=== PATIENT | female | born 1980 | race Hispanic/Latino ===

== ENCOUNTER 2017-04-18 23:42 | Emergency (ER) | payer OTHER ==
[2017-04-19 00:18] VITALS: BP 104/69; PULSE 86; RESP 14; TEMP 97.7; O2SAT 96
--- NOTE | 2017-04-19 00:32 | C.PDOC ---
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 Pt notes that she accidentally cut her right hand with a metal piece attached to a chair, "while trying to reach the phone under the chair in move [place]". Pt sts, noted bleeding from wound. Otherwise, pt denies deformity, neurovascular deficit, fever, chills, or any other complaints. Time Seen by Provider: 04/19/17 00:10 Chief Complaint (Nursing): Abnormal Skin Integrity History Per: Patient History/Exam Limitations: no limitations Onset/Duration Of Symptoms: Hrs Current Symptoms Are (Timing): Still Present Location Of Injury: Left: Hand (Dorsal lion aspect. Laceration) Quality Of Symptoms: Painful Severity: Mild Recent travel outside of the [place]: No Additional History Per: Patient Past Medical History Reviewed: Historical Data, Nursing Documentation, Vital Signs Vital Signs: Last Vital Signs Temp 97.7 F 04/19/17 00:16 Pulse 86 04/19/17 00:16 Resp 14 04/19/17 00:16 BP 104/69 04/19/17 00:16 Pulse Ox 96 04/19/17 00:42 - Medical History PMH: No Chronic Diseases Surgical History: Appendectomy Family History: States: No Known Family Hx - Social History Hx Alcohol Use: No Hx Substance Use: No - Immunization History Hx Tetanus Toxoid Vaccination: Yes Hx Influenza Vaccination: No Hx Pneumococcal Vaccination: No Review Of Systems Except As Marked, All Systems Reviewed And Found Negative. Constitutional: Negative for: Fever, Chills Musculoskeletal: Positive for: Hand Pain (Laceration to the left hand. No discharge) Skin: Positive for: Lesions Neurological: Negative for: Weakness, Numbness Physical Exam - Physical Exam Appears: Well, Non-toxic, No Acute Distress Skin: Warm, Dry, Other (2cm laceration to the dorsal lion aspect of the left hand overlining the carpal bone. 2cm laceration to the thenar eminence area.) Head: Atraumatic, Normacephalic Eye(s): bilateral: Normal Inspection Extremity: Normal ROM (Right hand), Capillary Refill (<2secs), No Deformity, No Swelling Extremity: Bilateral: Normal Color And Temperature, Normal ROM Pulses: Left Radial: Normal, Right Radial: Normal Neurological/Psych: Oriented x3, Normal Speech, Normal Motor, Normal Sensation, Normal Reflexes ED Course And Treatment O2 Sat by Pulse Oximetry: 96 (RA) Pulse Ox Interpretation: Normal Progress Note: On re-eavluation, pt is afebrile, hemodynamicaly stable. non- toxic. Right hand: lacerations#2 reapired with sutures ( see full report). FAROM, no neurovascular deficits. As per pt,tetanus is UTD. Pt advised on wound care. ref. to f/u with PMD in 2 days for wound check. return if any worsening or new changes/sign of infection. Pt understand and stable for discharge now, Laceration - Laceration Repair Right hand thenar eminence Wound Length (In cm): 2cm Description Of Wound: Linear (cutaneous) Wound Cleansed With: Betadine, Sterile Saline Anesthesia: Lidocaine 2% Wound Examination: Irrigated With Saline, No FB With Wound Exploration, No Tendon Injury With Wound Exploration Wound Closure: Suture (#4) Suture Technique And Material Used: Interrupted Wound Complexity: Simple Right hand dorsal aspect Wound Length (In cm): 2 Description Of Wound: Linear Wound Cleansed With: Betadine, Sterile Saline Anesthesia: Lidocaine 2% Wound Examination: Irrigated With Saline, No FB With Wound Exploration, No Tendon Injury With Wound Exploration Wound Closure: Suture (#4) Suture Technique And Material Used: Interrupted Wound Complexity: Simple Disposition Counseled Patient/Family Regarding: Diagnosis, Need For Followup, Rx Given - Disposition Referrals: [facility] at [facility] [Outside] Disposition: HOME/ ROUTINE Disposition Time: 00:52 Condition: STABLE Additional Instructions: Light duty to injured hand Avoid water exposure for 24-48 hours Apply antibiotic cream topical to wound daily Suture removal in 7-10 days Follow up with PMD in 2 days for wound check. return to ED at any time if any sign of infection or any other new changes. Instructions: Laceration (ED), Care For Your Stitches (ED) - Clinical Impression Clinical Impression: Laceration of hand - Scribe Statement The provider has reviewed the documentation as recorded by the Avisibbobby morrow All medical record entries made by the Scribe were at my direction and personally dictated by me. I have reviewed the chart and agree that the record accurately reflects my personal performance of the history, physical exam, medical decision making, and the department course for this patient. I have also personally directed, reviewed, and agree with the discharge instructions and disposition.
[2017-04-19] MEDS ORDERED: Bacitracin 500 Units/gm Oint Foilpak UD ONE (00:48)
== END 2017-04-19 01:00 | disposition home or self-care (01) ==
LOC: C.ER 23:42
DX: S61.411A Laceration without foreign body of right hand, initial encounter (principal); W45.8XXA Other foreign body or object entering through skin, initial encounter; Y93.89 Activity, other specified; Y92.254 Theater (live) as the place of occurrence of the external cause

== ENCOUNTER 2017-04-19 13:50 | Emergency (ER) | payer OTHER ==
[2017-04-19] MEDS ORDERED: Bacitracin 500 Units/gm Oint Foilpak UD TOP ONE (15:03)
--- NOTE | 2017-04-19 15:17 | C.PDOC ---
History Of Present Illness 36 y/o female presents to the ED with complaint of decreased sensation near right medial thumb. Pt was seen yesterday with laceration repair right dorsum of hand and now has numbness. Pt denies fever, chills or any other complaints. Time Seen by Provider: 04/19/17 14:14 Chief Complaint (Nursing): Upper Extremity Problem/Injury History Per: Patient History/Exam Limitations: no limitations Onset/Duration Of Symptoms: Hrs Current Symptoms Are (Timing): Still Present Severity: Mild Recent travel outside of the [place]: No Past Medical History Reviewed: Historical Data, Nursing Documentation, Vital Signs Vital Signs: Last Vital Signs Temp 98.2 F 04/19/17 14:02 Pulse 65 04/19/17 14:02 Resp 20 04/19/17 14:02 BP 125/86 04/19/17 14:02 Pulse Ox 98 04/19/17 15:20 Surgical History: Appendectomy Family History: States: Unknown Family Hx - Social History Hx Alcohol Use: No Hx Substance Use: No - Immunization History Hx Tetanus Toxoid Vaccination: Yes Hx Influenza Vaccination: No Hx Pneumococcal Vaccination: No Review Of Systems Constitutional: Negative for: Fever, Chills Neurological: Positive for: Numbness (right medial thumb) Physical Exam - Physical Exam Appears: Non-toxic, No Acute Distress Skin: Warm, Dry, No Rash, Other (well healing lacerations to dorsum right wrist and dorsal radial aspect right wrist; decreased sensation to corner right thumb) Head: Atraumatic, Normacephalic Extremity: Normal ROM, Capillary Refill (<2 seconds), No Deformity Pulses: Right Radial: Normal Neurological/Psych: Oriented x3, Normal Speech, Normal Motor, No Normal Sensation ED Course And Treatment O2 Sat by Pulse Oximetry: 98 (room air) Pulse Ox Interpretation: Normal Medical Decision Making Medical Decision Making: wounds healing well. pt reports slight tingling to distal thumb, from, normal cap refill, non tender. bacitracin and bandage applied. Disposition Counseled Patient/Family Regarding: Diagnosis, Need For Followup - Disposition Disposition: HOME/ ROUTINE Disposition Time: 15:55 Condition: STABLE Additional Instructions: Keep clean and dry. Cahnge bandage once a day, wash with soap and water, then re -apply antibiotic ointment. Suture removal in one week. 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 - Scribe Statement The provider has reviewed the documentation as recorded by the Scribe Juan A Mercado All medical record entries made by the Scribe were at my direction and personally dictated by me. I have reviewed the chart and agree that the record accurately reflects my personal performance of the history, physical exam, medical decision making, and the department course for this patient. I have also personally directed, reviewed, and agree with the discharge instructions and disposition.
[2017-04-19] MEDS ORDERED: Bacitracin 500 Units/gm Oint Foilpak UD ONE (15:34)
[2017-04-19 16:08] VITALS: BP 111/60; PULSE 68; RESP 16; TEMP 98.4
[2017-04-21 12:39] VITALS: O2SAT 98
== END 2017-04-19 16:07 | disposition home or self-care (01) ==
LOC: C.ER 13:50
DX: Z48.00 Encounter for change or removal of nonsurgical wound dressing (principal); R20.0 Anesthesia of skin

== ENCOUNTER 2017-05-01 11:44 | Emergency (ER) | payer OTHER ==
[2017-05-01 11:49] VITALS: BP 118/76; TEMP 98.7; O2SAT 97
--- NOTE | 2017-05-01 12:02 | C.PDOC ---
History Of Present Illness 36 yr old female presents to the ER for suture removal from the right wrist. Patient reports the sutures were placed on April 18. Denies fever, rash, weakness or numbness. Time Seen by Provider: 05/01/17 11:53 Chief Complaint (Nursing): Wound Check Past Medical History Vital Signs: Last Vital Signs Temp 98.7 F 05/01/17 11:47 Pulse 85 05/01/17 11:47 Resp 19 05/01/17 11:47 BP 118/76 05/01/17 11:47 Pulse Ox 97 05/01/17 12:02 Surgical History: Appendectomy Family History: States: Unknown Family Hx - Social History Hx Alcohol Use: No Hx Substance Use: No - Immunization History Hx Tetanus Toxoid Vaccination: Yes Hx Influenza Vaccination: No Hx Pneumococcal Vaccination: No Review Of Systems Except As Marked, All Systems Reviewed And Found Negative. Constitutional: Negative for: Fever Musculoskeletal: Positive for: Other (Right Wrist - Sutures in place) Skin: Negative for: Rash Neurological: Negative for: Weakness, Numbness Physical Exam - Physical Exam Appears: Well, Non-toxic, No Acute Distress Skin: Warm, Dry, Other (Right Wrist, Thenar [place] & Dorsal Aspect - 4 sutures intact. No erythema. No Swelling. No dischagre. ) Head: Atraumatic, Normacephalic Extremity: Normal ROM, No Tenderness, Capillary Refill (<2), No Deformity, No Swelling Pulses: Left Radial: Normal, Right Radial: Normal Neurological/Psych: Oriented x3, Normal Speech, Normal Motor ED Course And Treatment O2 Sat by Pulse Oximetry: 97 Disposition Counseled Patient/Family Regarding: Diagnosis, Need For Followup - Disposition Referrals: [facility] at [facility] [Outside] Disposition: HOME/ ROUTINE Disposition Time: 12:05 Condition: STABLE Additional Instructions: FOLLOW UP WITH YOUR DOCTOR/CLINIC IN 1-2 DAYS RETURN TO ER IF YOU HAVE ANY CONCERNING SYMPTOMS, SUCH REDNESS, DISCHARGE, FEVER, SWELLING Instructions: Stitches Removal (ED) Forms: General Discharge Instructions Print Language: LIBERIAN - POA Present On Arrival: None - Clinical Impression Clinical Impression: Visit for suture removal - Scribe Statement The provider has reviewed the documentation as recorded by the Scribe Simona Heaton Provider Attestation: All medical record entries made by the Scribe were at my direction and personally dictated by me. I have reviewed the chart and agree that the record accurately reflects my personal performance of the history, physical exam, medical decision making, and the department course for this patient. I have also personally directed, reviewed, and agree with the discharge instructions and disposition.
[2017-05-01 12:26] VITALS: PULSE 84; RESP 18
== END 2017-05-01 12:22 | disposition home or self-care (01) ==
LOC: C.ER 11:44
DX: Z48.02 Encounter for removal of sutures (principal)

== ENCOUNTER 2017-05-28 20:38 | Emergency (ER) | payer OTHER ==
[2017-05-28 20:55] VITALS: BMI 18.8
[2017-05-28] MEDS ORDERED: Sucralfate 1 gm/10 ml Oral Susp UD PO STA (21:30)
[2017-05-28] MEDS ORDERED: Sodium Chloride 0.9% 1,000 ML IV ONE (21:30)
[2017-05-28] MEDS ORDERED: Sodium Chloride 0.9% 1,000 ML ONE (21:52)
[2017-05-28] MEDS ORDERED: Iohexol 240 (50 ml) ONE (21:53)
--- NOTE | 2017-05-28 21:56 | C.PDOC ---
History Of Present Illness A 36 y/o F c/o abdominal discomfort and bloating for 2 days. Denies pain, fever , chills, nausea, diarrhea, vomiting, vaginal bleeding, or discharge. Pt reports (+) BRBPR today. Time Seen by Provider: 05/28/17 21:34 Chief Complaint (Nursing): GI Problem History Per: Patient History/Exam Limitations: no limitations Onset/Duration Of Symptoms: Days Current Symptoms Are (Timing): Still Present Severity: Mild Location Of Pain/Discomfort: Epigastric Radiation Of Pain To:: None Associated Symptoms: Other (Bloating, (+) BRBPR) Exacerbating Factors: None Alleviating Factors: None Recent travel outside of the [place]: No Additional History Per: Patient Abnormal Vaginal Bleeding: No Past Medical History Reviewed: Historical Data, Nursing Documentation, Vital Signs Vital Signs: Last Vital Signs Temp 97.8 F 05/28/17 20:55 Pulse 89 05/28/17 20:55 Resp 18 05/28/17 20:55 BP 129/88 05/28/17 20:55 Pulse Ox 98 05/29/17 01:55 Surgical History: Appendectomy Family History: States: Unknown Family Hx - Social History Hx Alcohol Use: No Hx Substance Use: No - Immunization History Hx Tetanus Toxoid Vaccination: Yes Hx Influenza Vaccination: No Hx Pneumococcal Vaccination: No Review Of Systems Except As Marked, All Systems Reviewed And Found Negative. Constitutional: Positive for: Other (Bloating). Negative for: Fever, Chills Gastrointestinal: Positive for: Abdominal Pain (Discomfort. No pain.). Negative for: Nausea, Vomiting, Diarrhea Genitourinary: Negative for: Vaginal Discharge, Vaginal Bleeding Physical Exam - Physical Exam Appears: Non-toxic, No Acute Distress Skin: Warm, Dry Head: Atraumatic, Normacephalic Eye(s): bilateral: Normal Inspection Oral Mucosa: Moist Cardiovascular: Rhythm Regular Respiratory: Normal Breath Sounds, No Accessory Muscle Use, No Rales, No Rhonchi , No Wheezing Gastrointestinal/Abdominal: Soft, Tenderness (Epigastric tenderness), No Guarding, No Rebound Rectal: Normal Exam, Other (Brown stools) Back: Normal Inspection, No CVA Tenderness Neurological/Psych: Oriented x3, Normal Speech, Normal Cognition, Other (No focal deficit) ED Course And Treatment - Laboratory Results Result Diagrams: 05/28/17 21:51 05/28/17 21:51 O2 Sat by Pulse Oximetry: 98 (RA) Pulse Ox Interpretation: Normal - CT Scan/US CT Abd with contrast Other Rad Studies (CT/US): Interpreted By Me, Read By Radiologist CT/US Interpretation: EXAM: CT Abdomen and Pelvis With Intravenous Contrast. CLINICAL HISTORY: 36 years old, female; Pain; Abdominal pain and other: Upperabd tenderness/ gi bleed. TECHNIQUE: Axial computed tomography images of the abdomen and pelvis with intravenous contrast. This CT. exam was performed using one or more of the following dose reduction techniques: automated. exposure control, adjustment of the mA and/or kV according to patient size, and/ or use of iterative. reconstruction technique. Coronal and sagittal reformatted images were created and reviewed. COMPARISON: No relevant prior studies available. FINDINGS: Lower thorax: No acute findings. ABDOMEN: Liver : Unremarkable. No mass. Gallbladder and bile ducts: Unremarkable. No calcified stones. No ductal dilation. No significant. wall thickening. Pancreas: Unremarkable. No mass. No ductal dilation. Spleen: Unremarkable. No splenomegaly. Adrenals: Unremarkable. No mass. Kidneys and ureters: Right kidney with ectopic orientation, kidneys otherwise unremarkable. No. solid mass. No hydronephrosis. Stomach and bowel: Bowel loops appear within normal limits, no signs of wall thickening, mucosal. edema, or bowel distention. Appendix: The appendix is not definitively visualized. However, no secondary signs of appendicitis. are present. PELVIS: Bladder: Unremarkable. No mass. Reproductive: A large heterogeneous mass of the left adnexa measuring approximately 4.9 cm preMultiple. uterine fibroids are present predominantly intramural without significant distortion of the. endometrium. ABDOMEN and PELVIS: Intraperitoneal space: Unremarkable. No free air. No significant fluid collection. Bones/joints: No acute fracture. No dislocation. Soft tissues: Unremarkable. Vasculature: Unremarkable. No abdominal aortic aneurysm. Lymph nodes: Unremarkable. No enlarged lymph nodes. IMPRESSION: There is solid mass left adnexa. Ovaries are not delineated. Presence of a left ovarian torsion or. solid mass cannot be excluded. Consider sonographic correlation with Doppler assessment. Multiple uterine fibroids as described. Nonvisualization of the appendix. No acute process in the abdomen. Medical Decision Making Medical Decision Making: Impression: A 36 y/o F c/o abdominal discomfort and bloating for 2 days. Plans: -Blood labs, -CT Abd, -blood labs, -Pepcid, -IV fluids, -Carafate, -IV fluids, -Reassess Disposition Counseled Patient/Family Regarding: Diagnosis - Disposition Referrals: [facility] at [facility] [Outside] Disposition: HOME/ ROUTINE Disposition Time: 04:37 Condition: STABLE Prescriptions: Ibuprofen [Motrin] 1 tab PO TID PRN #30 tab PRN Reason: Pain Instructions: Ovarian Cyst (ED), Uterine Fibroids (ED), Abdominal Pain (ED) - POA Present On Arrival: None - Clinical Impression Clinical Impression: Abdominal pain, Uterine fibroid, Ovarian cyst - Scribe Statement The provider has reviewed the documentation as recorded by the Scribe Merissa morrow All medical record entries made by the Scribe were at my direction and personally dictated by me. I have reviewed the chart and agree that the record accurately reflects my personal performance of the history, physical exam, medical decision making, and the department course for this patient. I have also personally directed, reviewed, and agree with the discharge instructions and disposition.
[2017-05-28 21:57] LABS: BASO % 0.4 % (0.0-2.0); EOS % 0.3 % (0.0-4.0); HEMOGLOBIN 13.1 g/dL (11.0-16.0); LYMPH # 1.6 K/uL (1.0-4.3); LYMPH % 28.7 % (20.0-40.0); MEAN CELL VOLUME 88.8 fL (81.0-99.0); MEAN CORPUSCULAR HEMOGLOBIN 29.3 pg (27.0-31.0); MEAN CORPUSCULAR HGB CONC 32.9 g/dL (33.0-37.0); MEAN PLATELET VOLUME 9.1 fL (7.2-11.7); MONO # 0.5 K/uL (0.0-0.8); NEUT # 3.5 K/uL (1.8-7.0); NEUT % 61.6 % (50.0-75.0); RBC 4.47 Mil/uL (3.80-5.20); RED CELL DISTRIBUTION WIDTH 14.3 % (11.5-14.5); WHITE BLOOD COUNT 5.7 K/uL (4.8-10.8)
[2017-05-28 22:03] LABS: SQUAMOUS EPITHIAL 3 /hpf (0-5); URINE BACTERIA RARE (<OCC); URINE BILIRUBIN NEGATIVE (NEGATIVE); URINE BLOOD 1+ (NEGATIVE); URINE CLARITY Clear (Clear); URINE COLOR Yellow (YELLOW); URINE GLUCOSE (UA) NORMAL (Normal); URINE LEUKOCYTE ESTERASE NEG Leu/uL (Negative); URINE NITRATE NEGATIVE (NEGATIVE); URINE PROTEIN NEGATIVE (NEGATIVE); URINE UROBILINOGEN NORMAL mg/dL (0.2-1.0)
[2017-05-28 22:04] LABS: ALBUMIN 4.1 g/dL (3.5-5.0); HCG,QUALITATIVE URINE NEGATIVE (NEGATIVE)
[2017-05-28 22:06] LABS: GFR AFRICAN-AMERICAN > 60; GFR NON-AFRICAN AMERICAN > 60
[2017-05-28 22:07] LABS: ALB/GLOB RATIO 1.2 (1.0-2.1); ALT/SGPT 20 U/L (9-52); AST/SGOT 29 U/L (14-36); BLOOD UREA NITROGEN 5 mg/dL (7-17); CALCIUM 9.3 mg/dl (8.6-10.4); LIPASE 80 U/L (23-300); PROTHROMBIN TIME 11.1 SECONDS (9.7-12.2)
[2017-05-28] MEDS ORDERED: Iodixanol 320 MG/ML 100 ML BOTTLE IV ONE (22:38)
[2017-05-29] MEDS ORDERED: Sodium Chloride 0.9% 500 ML IV ONE (00:02)
[2017-05-29 05:03] VITALS: BP 131/85; PULSE 67; RESP 16; TEMP 98.5; O2SAT 97
--- NOTE | 2017-05-29 09:11 | CT ---
PROCEDURE: CT Abdomen and Pelvis with contrast HISTORY: Upper abdominal tenderness. Upper GI bleed. COMPARISON: None. TECHNIQUE: Multiple contiguous axial images were performed through the abdomen and pelvis with intravenous contrast. Subsequently, sagittal and coronal reformatted images were obtained. Radiation dose: Total exam DLP = 251 mGy-cm. This CT exam was performed using one or more of the following dose reduction techniques: Automated exposure control, adjustment of the mA and/or kV according to patient size, and/or use of iterative reconstruction technique. FINDINGS: LOWER THORAX: 4 millimeter focal area of nodular consolidation seen within the posterior aspect of the right middle lobe. LIVER: Unremarkable. No gross lesion or ductal dilatation. GALLBLADDER AND BILE DUCTS: Unremarkable. PANCREAS: Unremarkable. No gross lesion or ductal dilatation. SPLEEN: Unremarkable. ADRENALS: Unremarkable. No mass. KIDNEYS AND URETERS: Ectopic orientation of the right kidney. VASCULATURE: Unremarkable. No aortic aneurysm. BOWEL: Unremarkable. No obstruction. No gross mural thickening. APPENDIX: Appendix not definitively visualized. PERITONEUM: Unremarkable. No free fluid. No free air. LYMPH NODES: Unremarkable. No enlarged lymph nodes. BLADDER: Unremarkable. REPRODUCTIVE: Large heterogeneous mass of the left adnexum measuring approximately 6.0 centimeters. Multiple uterine fibroid lesions are present predominantly intramural without significant distortion of the endometrium. BONES: No acute fracture. OTHER FINDINGS: None. IMPRESSION: Large lobulated ovoid focus measuring 6.0 x 4.4 centimeter seen within the region of the left adnexa demonstrating a Hounsfield unit attenuation of 60, indeterminate. Ovaries are not well delineated. Presence of a left ovarian torsion or solid mass cannot be excluded. Additional etiologies not excluded. Consider sonographic correlation with Doppler assessment. Multiple uterine fibroid lesions are noted. Nonvisualization of the appendix. These findings were preliminarily reported at 12:19 a.m. on 05/29/[address] Patrick Baer from [facility].
--- NOTE | 2017-05-29 17:35 | US ---
Pelvic ultrasound History: Left adnexal mass. Comparison: CT scan dated 05/28/2017 Technique: Real-time sonography was performed through the pelvis utilizing transvaginal technique. Findings: Uterus: 8.3 x 5.2 x 5.5 centimeters. Anteverted. Heterogeneous echotexture. Multiple prominent fibroid lesions seen posteriorly measuring 2.0 x 1.5 x 2.2 centimeters, at the fundal aspect measuring 2.7 x 1.9 x 2.6 centimeters, and at the fundal aspect measuring 2.2 x 2.0 x 2.6 centimeters. Endometrium measures 7.4 millimeters, heterogeneous. Right ovary: 3.9 x 3.0 x 3.9 centimeters. Normal flow. Left ovary: 6.5 x 4.0 x 5.7 centimeters. Normal flow. Complex heterogeneous cystic mass measuring 5.7 x 3.9 x 4.7 centimeters. Impression: As seen on the CT scan, there is a complex cystic mass at the level of the left ovary measuring 5.7 x 3.2 x 4.7 centimeters. This is of uncertain clinical etiology and may represent a hemorrhagic cyst; however, additional etiologies including endometrioma versus ovarian neoplasm versus additional etiology. Continued interval followup ultrasound and or correlation with pelvic MRI may be helpful if clinically indicated. Multiple uterine fibroid lesions. Continued interval follow-up as clinically indicated. These findings were preliminarily reported at 4:18 a.m. on 05/29/[address] Carlotta Astudillo from [facility].
== END 2017-05-29 05:03 | disposition home or self-care (01) ==
LOC: C.ER 20:38
DX: D25.9 Leiomyoma of uterus, unspecified (principal); N83.202 Unspecified ovarian cyst, left side
CPT/HCPCS: 74177; 76830; 80053; 81001; 83690; 84703; 85025; 85610; 85730; 86850; 86900; 96374; 99284; G0328; J7040; Q9967

== ENCOUNTER 2017-12-04 19:04 | Emergency (ER) | payer OTHER ==
[2017-12-04 19:05] VITALS: BMI 18.8
[2017-12-04 19:45] VITALS: BP 137/89; PULSE 76; RESP 20; TEMP 98.4; O2SAT 100
--- NOTE | 2017-12-04 21:25 | C.PDOC ---
History Of Present Illness 37 years old female presents to ED with complaints of upper back pain above right scapula. Pt describes pain as an "itchy and pinching feeling." Pt also states she feels that her right arm is swollen. Denies any other physical complaints. Time Seen by Provider: 12/04/17 20:02 Chief Complaint (Nursing): Back Pain History Per: Patient History/Exam Limitations: no limitations Onset/Duration Of Symptoms: Hrs Current Symptoms Are (Timing): Still Present Quality Of Discomfort: Other (Itchy and pinching) Previous Symptoms: None Associated Symptoms: None Exacerbating Factor(s): Nothing Recent travel outside of the [place]: No Past Medical History Reviewed: Historical Data, Nursing Documentation, Vital Signs Vital Signs: Last Vital Signs Temp 98.4 F 12/04/17 19:39 Pulse 76 12/04/17 19:39 Resp 20 12/04/17 19:39 BP 137/89 12/04/17 19:39 Pulse Ox 100 12/05/17 03:46 - Medical History PMH: No Chronic Diseases Surgical History: Appendectomy Family History: States: Unknown Family Hx - Social History Hx Alcohol Use: No Hx Substance Use: No - Immunization History Hx Tetanus Toxoid Vaccination: Yes Hx Influenza Vaccination: No Hx Pneumococcal Vaccination: No Review Of Systems Constitutional: Negative for: Fever Musculoskeletal: Positive for: Back Pain (upper back pain above right scapula), Other (Swelling in right arm). Negative for: Neck Pain Skin: Negative for: Rash Neurological: Negative for: Weakness, Numbness Physical Exam - Physical Exam Appears: Well, Non-toxic, Other (Awake and alert) Skin: Normal Color, Warm, Dry Head: Atraumatic, Normacephalic Eye(s): bilateral: Normal Inspection Oral Mucosa: Moist Neck: Supple Chest: Symmetrical, No Tenderness Cardiovascular: Rhythm Regular Extremity: Normal ROM (Moves hands normally ), Tenderness (Local right upper back above scapular area; no arm tenderness), No Swelling (Arm or upper back), Other (No erythema or lesions to right upper back ot arm) Extremity: Bilateral: Normal Color And Temperature, Normal ROM Pulses: Left Radial: Normal, Right Radial: Normal Neurological/Psych: Oriented x3, Normal Speech, Normal Cognition ED Course And Treatment O2 Sat by Pulse Oximetry: 100 (RA) Pulse Ox Interpretation: Normal Progress Note: Ordered x-ray of shoulder, upper back and dorsal spine. No acute findings. Patient is stable for discharge. Patient referred to neurologist. Disposition - Disposition Referrals: Rafa García DO [Staff Provider] - Ellis Lima MD [Staff Provider] - Disposition: HOME/ ROUTINE Disposition Time: 21:22 Condition: STABLE Additional Instructions: Follow up with PMD and Neurologist within 1-2 days. Return to ED if feel worse. 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 - Scribe Statement The provider has reviewed the documentation as recorded by the Avisibbobby Root All medical record entries made by the Scribe were at my direction and personally dictated by me. I have reviewed the chart and agree that the record accurately reflects my personal performance of the history, physical exam, medical decision making, and the department course for this patient. I have also personally directed, reviewed, and agree with the discharge instructions and disposition.
--- NOTE | 2017-12-05 08:30 | RAD ---
PROCEDURE: Radiographs of the Right Shoulder HISTORY: pain, pregnacy neg COMPARISON: No prior. FINDINGS: BONES: Normal. No fracture. JOINTS: Normal. Glenohumeral and acromioclavicular joints preserved. No osteoarthritis. SOFT TISSUES: Normal. OTHER FINDINGS: None. IMPRESSION: Normal radiographs of the right shoulder.
--- NOTE | 2017-12-05 08:31 | RAD ---
HISTORY: pain, Preg neg COMPARISON: No prior. FINDINGS: BONES: Mild scoliosis. No fracture. DISC SPACES: Normal. SOFT TISSUES: Normal. OTHER FINDINGS: None. IMPRESSION: Mild scoliosis, otherwise unremarkable study.
== END 2017-12-04 21:31 | disposition home or self-care (01) ==
LOC: C.ER 19:04
DX: M54.6 Pain in thoracic spine (principal); M54.10 Radiculopathy, site unspecified

== ENCOUNTER → 2017-12-30 20:39 | Emergency (ER) | payer OTHER ==
[2017-12-30 20:39] VITALS: BMI 18.8
== END | disposition left against medical advice (07) ==
LOC: C.ER 20:39
DX: Z02.89 Encounter for other administrative examinations (principal); R10.30 Lower abdominal pain, unspecified

== ENCOUNTER 2018-08-05 01:04 | Emergency (ER) | payer OTHER ==
[2018-08-05 01:05] VITALS: BMI 18.8
[2018-08-05 01:18] VITALS: BP 154/94; PULSE 97; RESP 20; TEMP 98.2; O2SAT 100
--- NOTE | 2018-08-05 01:42 | C.PDOC ---
History Of Present Illness 37 y/o female presents to the ED complaining of swelling to the right side of her vaginal since she woke up earlier today. She denies experiencing any trauma , any drainage, discharge, abdominal pain, dysuria or vaginal bleeding. The patient offers no other medical complaints at this time. Time Seen by Provider: 08/05/18 01:18 Chief Complaint (Nursing): Female Genitourinary History Per: Patient History/Exam Limitations: no limitations Onset/Duration Of Symptoms: Days Current Symptoms Are (Timing): Still Present Associated Symptoms: denies: Urinary Symptoms Recent travel outside of the [place]: No Past Medical History Reviewed: Historical Data, Nursing Documentation, Vital Signs Vital Signs: Last Vital Signs Temp 98.2 F 08/05/18 01:08 Pulse 97 H 08/05/18 01:08 Resp 20 08/05/18 01:08 BP 154/94 H 08/05/18 01:08 Pulse Ox 100 08/05/18 01:49 - Medical History PMH: No Chronic Diseases Surgical History: Appendectomy Family History: States: Unknown Family Hx - Social History Hx Alcohol Use: No Hx Substance Use: No - Immunization History Hx Tetanus Toxoid Vaccination: Yes Hx Influenza Vaccination: No Hx Pneumococcal Vaccination: No Review Of Systems Except As Marked, All Systems Reviewed And Found Negative. Constitutional: Negative for: Fever Genitourinary: Negative for: Dysuria, Vaginal Discharge, Vaginal Bleeding Skin: Positive for: Other (swelling to right side of vagina) Physical Exam - Physical Exam Appears: Well, Non-toxic, No Acute Distress Skin: Normal Color, Warm, Dry Head: Atraumatic, Normacephalic Eye(s): bilateral: Normal Inspection Ear(s): Bilateral: Normal Oral Mucosa: Moist Pelvic: No Vaginal Bleeding, No Vaginal Discharge, Other (engorged right labia. No fluctuant mass, no tenderness, no drainage) Extremity: Normal ROM Extremity: Bilateral: Atraumatic, Normal Color And Temperature, Normal ROM Neurological/Psych: Oriented x3, Normal Speech ED Course And Treatment O2 Sat by Pulse Oximetry: 100 (RA) Pulse Ox Interpretation: Normal Progress Note: Ordered a test-- negative. Patient is stable for discharge. Disposition Counseled Patient/Family Regarding: Diagnosis, Need For Followup - Disposition Referrals: Rafa García DO [Staff Provider] - Disposition: HOME/ ROUTINE Disposition Time: 01:39 Condition: STABLE Additional Instructions: Avoid tight fitting clothing Follow up with PMD/ or [employer] doctor Return to ER if draining , pain, increase swellling, or worse Forms: [facility] (Green[place]ic), General Discharge Instructions - Clinical Impression Clinical Impression: Swelling of labia - PA / NEWSPAPER REPORTER / Resident Statement MD/DO has reviewed & agrees with the documentation as recorded. - Scribe Statement The provider has reviewed the documentation as recorded by the Scribe (Ida Farrar) All medical record entries made by the Scribe were at my direction and personally dictated by me. I have reviewed the chart and agree that the record accurately reflects my personal performance of the history, physical exam, medical decision making, and the department course for this patient. I have also personally directed, reviewed, and agree with the discharge instructions and disposition.
== END 2018-08-05 02:07 | disposition home or self-care (01) ==
LOC: C.ER 01:04
DX: N89.8 Other specified noninflammatory disorders of vagina (principal)

== ENCOUNTER 2018-12-18 19:51 | Emergency (ER) | payer OTHER ==
[2018-12-18 19:52] VITALS: BMI 18.8
[2018-12-18 20:11] VITALS: RESP 18
--- NOTE | 2018-12-18 20:39 | C.PDOC ---
History Of Present Illness 38 y/o female with a PMHx of gastritis, alcohol use, presents to the ED with complaints of epigastric pain for the past week. Notes she has been drinking slightly more than normal, 4 beers per day, and developed abdominal pain. Repor ts pain feels similar to previous episodes of gastritis. Otherwise she denies nausea, vomiting, constipation, diarrhea, dark or bloody stools. No urinary complaints. She denies any vaginal bleeding or discharge. Notes that her menstrual period just finished. Patient states she is mostly concerned regarding bloating and increased burping. 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 Negative for: Na usea, Vomiting, Diarrhea, Constipation, Melena, Hematochezia Genitourinary: Negative for: Dysuria, Frequency, Vaginal Discharge, Vaginal Bleeding Neurological: Negative for: Weakness, Dizziness Physical Exam - Physical Exam Appears: Non-toxic, No Acute Distress Skin: Warm, Dry Head: Normacephalic Eye(s): bilateral: Normal Inspection, PERRL, EOMI Oral Mucosa: Moist Neck: Trachea Midline, Supple, Other (No meningeal signs- negative kernig's and brudzinskis) Chest: Symmetrical, No Tenderness Cardiovascular: Rhythm Regular, No Friction Rub Respiratory: No Rales, No Rhonchi, No Wheezing Gastrointestinal/Abdominal: Soft, No Tenderness, No Organomegaly, No Mass, No Distention, No Guarding, No Rebound, No Hernia Back: Normal Inspection, No CVA Tenderness, No Vertebral Tenderness Extremity: Bilateral: Normal Color And Temperature Pulses: Left Dorsalis Pedis: Normal, Right Dorsalis Pedis: Normal Neurological/Psych: Oriented x3 Gait: Steady ED Course And Treatment - Laboratory Results Result Diagrams: 12/18/18 21:24 12/18/18 21:24 O2 Sat by Pulse Oximetry: 97 (RA) Pulse Ox Interpretation: Normal Medical Decision Making Medical Decision Makin yr old female w/ hx of etoh abuse p/w epigastric abdominal pain, bloating. Likely alcoholic gastritis vs GERD. RUQ non-ttp. Pt has had appendectomy prior. No peritoneal signs. No fever, chills or night sweats. Plan: Labs ordered and reviewed. Patient treated with IV fluids, 20 mg IV Pepcid, 80 mg PO Mylicon, and 30 ml PO Maalox. Repeat exam is unremarkable, abdomen soft and nontender. Patient is tolerating PO clears. Pt denies any abd pain currently. Plan is to d/c home. Patient advised to decrease alcohol use and given return indications and followup Disposition - Disposition Referrals: Boris Curry MD [Staff Provider] - Rafa García DO [Staff Provider] - Disposition: HOME/ ROUTINE Disposition Time: 23:16 Condition: GOOD Additional Instructions: DECREASE THE AMOUNT OF ALCOHOL YOU DRINK. IT CAN CAUSE STOMACH ISSUES. SEE THE D OCTORS PROVIDED. ALSO RETURN IF ANY NEW ISSUES. Prescriptions: Famotidine [Pepcid] 20 mg PO DAILY PRN 10 Days #10 tab PRN Reason: Pain, Moderate (4-7) Instructions: Alcohol Use - When Is Drinking a Problem?, Gastritis (DC) Forms: [facility] (Lux[place]ish) - Clinical Impression Clinical Impression: Gastritis, Alcoholic gastritis - Scribe Statement The provider has reviewed the documentation as recorded by the Atilio Lugo Provider Attestation: All medical record entries made by the Scribe were at my direction and personally dictated by me. I have reviewed the chart and agree that the record accurately reflects my personal performance of the history, physical exam, medical decision making, and the department course for this patient. I have also personally directed, reviewed, and agree with the discharge instructions and disposition.
[2018-12-18] MEDS ORDERED: Sodium Chloride 0.9% 1,000 ML IV ONE (21:32)
[2018-12-18] MEDS ORDERED: Aluminum Hydroxide/Magnesium Hydroxide Susp (30 mL) PO STA (21:32)
[2018-12-18] MEDS ORDERED: Simethicone 80 mg Chewtab PO STA ×2 (21:32→22:07)
[2018-12-18 21:35] LABS: BASO % 0.7 % (0.0-2.0); EOS # 0.1 K/uL (0.0-0.7); EOS % 1.5 % (0.0-4.0); HEMOGLOBIN 13.1 g/dL (11.0-16.0); LYMPH # 2.5 K/uL (1.0-4.3); LYMPH % 44.5 % (20.0-40.0); MEAN CELL VOLUME 89.6 fL (81.0-99.0); MEAN CORPUSCULAR HEMOGLOBIN 29.4 pg (27.0-31.0); MEAN CORPUSCULAR HGB CONC 32.8 g/dL (33.0-37.0); MEAN PLATELET VOLUME 8.6 fL (7.2-11.7); MONO # 0.5 K/uL (0.0-0.8); MONO % 8.8 % (0.0-10.0); NEUT # 2.5 K/uL (1.8-7.0); NEUT % 44.5 % (50.0-75.0); NRBC % 0.1 % (0.0-2.0); RBC 4.46 Mil/uL (3.80-5.20); RED CELL DISTRIBUTION WIDTH 13.5 % (11.5-14.5); WHITE BLOOD COUNT 5.7 K/uL (4.8-10.8)
[2018-12-18 21:42] LABS: SQUAMOUS EPITHIAL 5 /hpf (0-5); URINE BILIRUBIN NEGATIVE (NEGATIVE); URINE BLOOD NEGATIVE (NEGATIVE); URINE CLARITY Clear (Clear); URINE COLOR Yellow (YELLOW); URINE GLUCOSE (UA) NORMAL (Normal); URINE LEUKOCYTE ESTERASE TRACE Leu/uL (Negative); URINE PROTEIN NEGATIVE (NEGATIVE); URINE UROBILINOGEN NORMAL mg/dL (0.2-1.0)
[2018-12-18 21:49] LABS: ALB/GLOB RATIO 1.4 (1.0-2.1); ALBUMIN 4.2 g/dL (3.5-5.0); ALT/SGPT 17 U/L (9-52); AST/SGOT 24 U/L (14-36); BLOOD UREA NITROGEN 12 mg/dL (7-17); CALCIUM 8.6 mg/dl (8.6-10.4); GFR NON-AFRICAN AMERICAN > 60; LIPASE 246 U/L (23-300)
[2018-12-18] MEDS ORDERED: Aluminum Hydroxide/Magnesium Hydroxide Susp (30 mL) ONE (21:59)
[2018-12-18] MEDS ORDERED: Sodium Chloride 0.9% 1,000 ML ONE (21:59)
[2018-12-18 23:41] VITALS: BP 139/87; PULSE 77; TEMP 97.8
[2018-12-19 03:15] VITALS: O2SAT 97
== END 2018-12-18 23:41 | disposition home or self-care (01) ==
LOC: C.ER 19:51
DX: K29.20 Alcoholic gastritis without bleeding (principal)
CPT/HCPCS: 80053; 81001; 83690; 83735; 85025; 96361; 96374; 99284; J7030